=== PATIENT | male | born 1985 | race Caucasian/White ===

== ENCOUNTER 2021-11-07 04:52 | Emergency (ER) | payer BC, SELFPAY ==
--- NOTE | ~2021-11-07 | XR_ITS ---
EXAMINATION: XR HAND, LEFT CLINICAL INFORMATION: Pain COMPARISON: None TECHNIQUE: 4 views of the left hand FINDINGS: There is dislocation at the fifth carpometacarpal joint. Possible dislocation at the fourth carpometacarpal joint. Although no definite fracture line is seen, small osseous fragment is seen at the dorsal aspect of the hand/wrist, which raises suspicion for fracture. Soft tissue swelling. XR/XR hand wrist LT IMPRESSION: Dislocation at the fifth carpometacarpal joint with possible fourth carpometacarpal joint dislocation as well. Suspected associated fracture. CT could be performed to further evaluate.
--- NOTE | ~2021-11-07 | CT_ITS ---
EXAMINATION: XR HAND, LEFT WITHOUT CONTRAST CLINICAL INFORMATION: Pain and swelling COMPARISON: Radiographs from today TECHNIQUE: Multidetector volumetric imaging of the left hand performed without IV contrast. Coronal and sagittal reformatted images are obtained and reviewed. This CT examination was performed using dose optimization techniques as appropriate, variously including the following: *Automated exposure control *Adjustment of mA and/or kV according to patient size (this includes techniques or standardized protocols for targeted exams where dose is matched to indication/reason for exam; i.e. extremities or head) *Use of iterative reconstruction technique DLP: 125 mGy-cm FINDINGS: There has been reduction of the previous carpometacarpal dislocation. There is a comminuted intra-articular fracture at the base of the fourth metacarpal. No significant displacement of the major fragment, with multiple small fragments noted. There is also a fracture involving the dorsal aspect of the hamate, with multiple small displaced fragments. The carpal rows remain aligned with the joint space is maintained. Metacarpophalangeal and interphalangeal joints are maintained. Prominent soft tissue swelling at the dorsum of the hand/wrist. CT/CT hand LT wo con IMPRESSION: Reduction of prior dislocation. Intra-articular fracture of the base of the fourth metacarpal. Comminuted fracture of the dorsal aspect of the hamate.
[2021-11-07 05:06] VITALS: BP 134/77; PULSE 73; RESP 16; TEMP 36.8; O2SAT 97; BMI 24.9
[2021-11-07] MEDS: Ibuprofen 600 MG TABLET PO (05:29)
--- NOTE | 2021-11-07 05:46 | ED.EXTPRO ---
HPI - Extremity Problem General Chief complaint: Extremity Injury, Upper Stated complaint: broken arm Time Seen by Provider: 11/07/21 05:19 Source: patient Mode of arrival: ambulatory Limitations: no limitations History of Present Illness HPI Narrative: patient is L hand dominant MD Complaint: joint swelling and joint pain Onset (ago): minute(s) (just prior to arrival ) Pain Consistency: constant Location: left and upper extremity (hand) Quality: aching and constant Radiation: none Relieving factors: immobilization Exacerbating factors: range of motion and palpation Associated symptoms: denies other symptoms Context: other (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 ) Related Data Previous Rx's Medication Instructions Recorded morphine 15 mg immediate release 15 mg PO TID PRN pain #10 tabs 11/07/21 tablet ondansetron 4 mg disintegrating 4 mg PO Q8H PRN nausea and 11/07/21 tablet vomiting #20 tabs Allergies Allergy/AdvReac Type Severity Reaction Status Date / Time No Known Allergies Allergy Verified 11/07/21 05:05 Review of Systems Review of Systems: Constitutional : No Fever, No Chills ENT/Mouth : No Ear Pain, No Hoarseness, No sore throat Eyes: No Eye Pain, No Swelling, No Redness, No Foreign Body Cardiovascular : No Chest Pain, No SOB Respiratory : No Cough, No Dyspnea Gastrointestinal : No Nausea, No Vomiting, No Diarrhea, No abdominal Pain Genitourinary : No Dysuria, No Hematuria Musculoskeletal : positive joint pain, No Myalgias, pos Joint Swelling Skin : No Skin lacerations, No rash Neuro : No Weakness, No Numbness, No Loss of Consciousness, No Dizziness, No Headache Psych : No Anxiety/Panic, No Depression Heme/Lymph: no easy bruising, no Lymphadenopathy Endocrine : No Polyuria, No Polydipsia All other systems reviewed and are negative PMFSH Past Medical History Attestation statement: The following information was validated with the patient. Medical History (Updated 11/07/21 @ 06:48 by Michelle Landry DO) No pertinent past medical history Social History Social History (Updated 11/07/21 @ 06:29 by Michelle Landry DO) Patient Tobacco Use Status: Never used Tobacco Advance Directives: No Advance Directives Information Provided: Yes Physical Exam Vital Signs: Vital Signs: Last Vital Signs Temp 98.2 F 11/07/21 05:06 Pulse 68 11/07/21 06:41 Resp 14 11/07/21 06:41 BP 114/73 11/07/21 06:41 Pulse Ox 99 11/07/21 06:41 O2 Del Method 11/07/21 06:41 BMI result Body Mass Index 24.9 Appearance: Alert. Oriented X3. No acute distress. Eyes: Pupils equal, round and reactive to light. ENT: Pharynx normal. Neck: Normal inspection. Neck supple. CVS: Pulses normal. Respiratory: No respiratory distress. Abdomen: Soft and non-tender. Skin: Skin warm and dry. Normal skin color. Normal skin turgor. Extremities: No lower extremity edema. L hand marked swelling on dorsum - BCR in all digits, SILT intact fingertips, 2+ radial pulse deformity noted dorsum of hand Neuro: Oriented X 3. No motor deficit. No sensory deficit. Course Course Course Narrative: patient actually plans to follow up with his own doctor in [place] as he doesn't live here MDM - Extremity (Nontraumatic) Lab Data Labs: Lab Results 11/07/21 Range/Units 06:35 COVID-19 (JEFFY) Negative (Negative) COVID-19 Clin Com See Note Procedures Orthopedic Joint Reduction Joint #1: Time Out Performed: Yes Side: left Joint Reduction Location: other (4th / 5th [facility] joint) Analgesia: none Technique used: traction/counter-traction and direct manipulation (with volar manipulation) Post-reduction neuro exam: intact Post-reduction vascular: intact Post Reduction X-Ray Obtained: Yes Post Reduction X-Ray Results: reduced Splint Applied: Yes Patient Tolerated Procedure: well and no complications Orthopedic Splinting/Casting Injury #1: Side: left Upper Extremity Injury Location: hand Upper Extremity Immobilizer: ulnar gutter Additional Comments: NV intact post splint Discharge Plan Discharge Clinical Impression: Carpometacarpal joint dislocation Qualifiers: Encounter type: initial encounter Laterality: left Qualified Code(s): S63.055A - Dislocation of other carpometacarpal joint of left hand, initial encounter Fracture of metacarpal Qualifiers: Encounter type: initial encounter Metacarpal bone: fourth Metacarpal location: base Fracture alignment: displaced Laterality: left Fracture of hamate Qualifiers: Encounter type: initial encounter Hamate bone location: unspecified portion of hamate Fracture type: closed Fracture alignment: displaced Laterality: left Qualified Code(s): S62.142A - Displaced fracture of body of hamate [unciform] bone, left wrist, initial encounter for closed fracture Patient Disposition: Home, Self-Care Instructions: Hand Fracture (ED), Splint Care (ED) Additional Instructions: return to ED for any worsening symptoms or concerns wear splint until released FINDINGS: There has been reduction of the previous carpometacarpal dislocation. There is a comminuted intra-articular fracture at the base of the fourth metacarpal. No significant displacement of the major fragment, with multiple small fragments noted. There is also a fracture involving the dorsal aspect of the hamate, with multiple small displaced fragments. The carpal rows remain aligned with the joint space is maintained. Metacarpophalangeal and interphalangeal joints are maintained. Prominent soft tissue swelling at the dorsum of the hand/wrist. CT/CT hand LT wo con IMPRESSION: Reduction of prior dislocation. Intra-articular fracture of the base of the fourth metacarpal. Comminuted fracture of the dorsal aspect of the hamate. Prescriptions: New morphine 15 mg tablet 15 mg PO TID PRN (Reason: pain) Qty: 10 0RF Rx Instructions: partial fill okay; Partial Fill upon patient request. ondansetron 4 mg tablet,disintegrating 4 mg PO Q8H PRN (Reason: nausea and vomiting) Qty: 20 0RF Referrals: Mary Mack MD [Physician] - 1 week (call this weekend) Stand Alone Forms: Work/School Release
[2021-11-07 06:36] VITALS: RESP 15
[2021-11-07] MEDS: ondansetron HCL 4 MG/2 ML VIAL IVPUSH (06:36)
[2021-11-07] MEDS: Morphine Sulfate 4 MG/ML CARTRIDGE IVPUSH (06:36)
[2021-11-07 06:41] VITALS: BP 114/73; PULSE 68; RESP 14; O2SAT 99
[2021-11-07 07:00] LABS: COVID-19 Test Negative (Negative)
== END 2021-11-07 08:01 | disposition home or self-care (01) ==
PROVIDERS: Emergency Provider Emergency Medicine
DX: S62.307A Unspecified fracture of fifth metacarpal bone, left hand, initial encounter for closed fracture (principal); S62.305A Unspecified fracture of fourth metacarpal bone, left hand, initial encounter for closed fracture; S62.142A Displaced fracture of body of hamate [unciform] bone, left wrist, initial encounter for closed fracture; X50.1XXA Overexertion from prolonged static or awkward postures, initial encounter; Z20.822 Contact with and (suspected) exposure to COVID-19; Y93.H3 Activity, building and construction; Y92.69 Other specified industrial and construction area as the place of occurrence of the external cause; Y99.0 Civilian activity done for income or pay
CPT/HCPCS: 26742; 73110; 73130; 73200; 87635; 96374; 96375; 99284; J2270; J2405